=== PATIENT | male | born 1975 | race Caucasian/White ===

== ENCOUNTER 2018-02-03 17:55 | Emergency (ER) | payer MEDICAID ==
[~2018-02-03] VITALS: Ht 177.8 cm; Wt 101.2 kg
[2018-02-03 18:10] VITALS: BP 138/86
== END 2018-02-03 19:38 | disposition home or self-care (01) ==
LOC: ED 19:28
DX: S61.411A Laceration without foreign body of right hand, initial encounter (principal); W45.8XXA Other foreign body or object entering through skin, initial encounter; Y93.89 Activity, other specified; Y92.009 Unspecified place in unspecified non-institutional (private) residence as the place of occurrence of the external cause; Y99.8 Other external cause status; S60.222A Contusion of left hand, initial encounter
CPT/HCPCS: 12041; 99284

== ENCOUNTER 2018-10-01 09:27 | Emergency (ER) | payer SELFPAY ==
[~2018-10-01] VITALS: Ht 177.8 cm; Wt 102.9 kg
--- NOTE | 2018-10-01 10:03 | NUR ---
PATIENT ARRIVES TO ER WITH SOB THAT BEGAN THIS MORNING. IT IS ACCOMPANIED BY DIZZINES, SWEATING AND CHEST PAIN SLIGHTLY. PLACED ON MONITOR. STATES HE WAS TO BE SEEN FOR HTN WORKUP LAST NOVEMBER BUT DIDN'T FOLLOW THROUGH. HE STATES HE MAY HAVE HTN BUT IT'S NOT BEEN DIAGNOSED OR SEEN BY
[2018-10-01 10:19] LABS: BASOPHILS # (AUTO) 0.09 x10^3/uL (0-0.1); BASOPHILS % (AUTO) 1 % (0-1); EOSINOPHILS # (AUTO) 0.17 x10^3/uL (0-0.4); EOSINOPHILS % (AUTO) 2 % (1-7); LYMPHOCYTES # (AUTO) 1.98 x10^3/uL (1-3.4); LYMPHOCYTES % (AUTO) 24 % (22-44); MD NO; MEAN CORPUSCULAR HEMOGLOBIN 30.3 pg (27.5-34.5); MEAN CORPUSCULAR HGB CONC 34.1 g/dL (33.2-36.2); MEAN CORPUSCULAR VOLUME 88.8 fL (81-97); MEAN PLATELET VOLUME 9.3 fL (7.4-10.4); MONOCYTES # (AUTO) 0.61 x10^3/uL (0.2-0.8); MONOCYTES % (AUTO) 7 % (2-9); NEUTROPHILS # (AUTO) 5.36 x10^3/uL (1.8-6.8); NEUTROPHILS % (AUTO) 65 % (42-75); PLATELET COUNT 273 x10^3/uL (130-400); RED BLOOD COUNT 5.81 x10^6/uL (4.38-5.82); RED CELL DISTRIBUTION WIDTH 14.1 % (9.4-14.8)
[2018-10-01 10:30] LABS: ANION GAP 9 mmol/L (5-15); CALCIUM 8.5 mg/dL (8.5-10.1); CHLORIDE 112 mmol/L (98-107)
[2018-10-01 10:35] LABS: ALANINE AMINOTRANSFERASE 24 U/L (12-78); ALKALINE PHOSPHATASE 116 U/L (45-117); BILIRUBIN,TOTAL 0.8 mg/dL (0.2-1.0); CREATININE 0.94 mg/dL (0.7-1.3)
--- NOTE | 2018-10-01 10:56 | NUR ---
PATIENT'S SAT'S IN 80'S. PLACED ON TWO LITERS NASAL CANNULA.
--- NOTE | 2018-10-01 11:46 | NUR ---
MD AT BEDSIDE. GETTING PATIENT FOOD AND JUICE. PATIENT IS WEAK.
[2018-10-01 12:15] VITALS: BP 145/78
--- NOTE | 2018-10-01 12:16 | NUR ---
DISCHARGE TEACHING REVIEWED WITH PATIENT. SHOWS UNDERSTANDING.
== END 2018-10-01 12:29 | disposition home or self-care (01) ==
LOC: ED 12:12
DX: R55 Syncope and collapse (principal); F17.200 Nicotine dependence, unspecified, uncomplicated; I10 Essential (primary) hypertension
CPT/HCPCS: 36415; 80053; 85025; 93005; 99283; 99284